=== PATIENT | male | born 1950 | race Caucasian/White ===

== ENCOUNTER 2017-10-02 19:20 | Emergency (ER) | payer OTHER ==
[~2017-10-02] VITALS: Ht 175.3 cm; Wt 72.5 kg
[2017-10-02 20:46] LABS: BASOPHIL (%) 0.3 % (0-1); EOSINOPHIL (%) 0.2 % (0-5); HEMOGLOBIN 14.5 G/DL (12.5-16.6); IMMATURE GRANULOCYTE (%) 0.3 % (0.0-0.7); LYMPHOCYTE (%) 5.8 % (15-42); LYMPHOCYTE COUNT 0.7 K/uL (1.0-2.8); MCH 32.2 PG (29.0-34.0); MCHC 33.7 G/DL (30.0-36.0); MCV 95.6 FL (86-99); MONOCYTE (%) 5.3 % (3-12); MONOCYTE COUNT 0.6 K/uL (0-0.8); NEUTROPHIL (%) 88.1 % (45-76); NEUTROPHIL COUNT 10.2 K/uL (1.8-6.4); PLATELET COUNT 333 K/uL (156-360); RBC DIS.WIDTH-CV 12.4 % (11.8-14.6); RBC DIS.WIDTH-SD 44.1 % (39-53); WHITE BLOOD COUNT 11.6 K/uL (4.1-10.2)
[2017-10-02 20:53] LABS: CHLORIDE 104 mEq/L (99-109); POTASSIUM 4.3 mEq/L (3.7-5.4); SODIUM 139 mEq/L (136-147)
[2017-10-02 20:59] LABS: CREATININE 0.9 mg/dL (0.6-1.3); GFR ESTIMATE (CALCULATED) > 59 mL/min/ (58.99-99999); UREA NITROGEN (BUN) 11 mg/dL (9-23)
[2017-10-02 21:04] LABS: GLUCOSE 140 mg/dL (70-99)
[2017-10-02 22:12] VITALS: BP 139/86
== END 2017-10-02 22:15 | disposition home or self-care (01) ==
LOC: EME 19:20
PROVIDERS: Emergency Medicine
DX: R56.9 Unspecified convulsions (principal)
CPT/HCPCS: 70450; 80048; 85025; 93005; 99281; 99284

== ENCOUNTER → 2017-10-03 | Outpatient (CLI) | payer OTHER | END | disposition home or self-care (01) | LOC: EEG 12:00 | DX: R56.9 Unspecified convulsions (principal) | CPT/HCPCS: 95954 ==